=== PATIENT | female | born 1960 | race Caucasian/White ===

== ENCOUNTER 2016-04-05 17:47 | Emergency (ER) | payer OTHER ==
[~2016-04-05] VITALS: Ht 162.6 cm; Wt 88.9 kg
--- NOTE | 2016-04-05 19:40 | ED GENERAL ADULT ---
History of Present Illness General Chief Complaint: Chest Pain Stated Complaint: FEVER,CHEST PAIN,COUGH Source: patient Exam Limitations: no limitations Vital Signs & Intake/Output Vital Signs & Intake/Output Vital Signs Date Time Temp Pulse Resp B/P Pulse O2 O2 Flow FiO2 Ox Delivery Rate 04/05 2039 100.5 78 18 148/65 96 Room Air 04/05 1949 Room Air 04/050 102.5 04/05 1817 102.5 80 20 133/71 98 Room Air Allergies Coded Allergies: diphenhydramine (From BENADRYL) (Intermediate, "MAKES ME CRAZY" 04/05/16) rofecoxib (From VIOXX) (Intermediate, ARRHYTHMIAS 04/05/16) adhesive tape (Mild, REDNESS AND SWELLING AT SITE 04/05/16) morphine (Mild, "MAKES ME ITCH" 04/05/16) Reconcile Medications Oseltamivir Phosphate (Tamiflu) 75 MG CAPSULE 1 CAP PO BID influenza Robitussin AC (Guaifenesin-Codeine Syrup) 200 MG-20 MG/10 ML LIQUID 10 ML PO Q6H PRN COUGH Triage Note: TRIAGE: PT TO ER C/C FEVER, CHEST PAIN, COUGH, HEADACHE, L NECK PAIN, LOW ABD PAIN. ONSET THURSDAY. COUGH HAS BEEN NONPRODUCTIVE. STATES STARTED OUT OF NO WHERE. FEELS THE ABD PAIN IS R/T PULLED MUSCLES FROM COUGHING. HAS BEEN STRESSED R/T RECENT ILLNESS AND OF HER MOTHER ON THURSDAY WITH TODAY. STATES THAT SHE WAS ALSO EXPOSED TO MRSA WITH HER MOTHERS ILLNESS. HAD ECHO, STRESS TEST AND CALCIUM LEVEL CHECK DONE AT [facility] ON THURSDAY FOR "INTERMITTENT EXCRUCIATING CHEST PAINS". TRIED TO BE SEEN AT [facility] TODAY BUT NEITHER PLACE WOULD TAKE HER THEY WERE CLOSING WITHIN THE HOUR. HAD EKG DONE IN [place] PRIOR TO TRIAGE. TEMP 102.5 AT TRIAGE, LAST DOSE OF ANTIPYRETICS 09:30. Triage Nurses Notes Reviewed? yes HPI: Patient is a 55-year-old female presents complaining of cough and fevers. Symptoms for approximately 2 days. Fever between 102 and 103F. Patient has been taking ibuprofen with mild improvement. Patient reports lower abdominal pain secondary to the cough. Patient also reports intermittent chest pain associated with her cough. Patient had an echocardiogram and a stress test yesterday. Cough has been severe. Past History Travel History Traveled to [place] past 21 day No Medical History Any Pertinent Medical History? 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 No Review of Systems Review of Systems Constitutional: Reports: chills, fever, malaise, weakness. EENTM: Reports: nasal congestion. Respiratory: Reports: see HPI, cough, sputum production. Cardiovascular: Reports: chest pain. GI: Reports: abdominal pain. Denies: diarrhea, vomiting. Genitourinary: Reports: no symptoms. Musculoskeletal: Reports: muscle pain. Skin: Reports: no symptoms. Neurological/Psychological: Reports: no symptoms. Hematologic/Endocrine: Reports: no symptoms. Immunologic/Allergic: Reports: no symptoms. Physical Exam Physical Exam General Appearance: well developed/nourished, alert, awake Head: atraumatic, normal appearance Eyes: Bilateral: normal appearance, PERRL, EOMI. Ears, Nose, Throat: normal pharynx, normal ENT inspection, hearing grossly normal Neck: normal inspection, supple, full range of motion Respiratory: normal breath sounds, chest non-tender, no respiratory distress, lungs clear Cardiovascular: regular rate/rhythm Back: normal inspection, normal range of motion Extremities: normal inspection, normal capillary refill, normal range of motion, no edema Neurologic/Psych: no motor/sensory deficits, awake, alert, oriented x 3, normal gait, normal mood/affect Skin: intact, normal color, warm/dry Lymphatic: no anterior cervical snehal Core Measures ACS in differential dx? Yes ASA ordered for poss ACS? No-ACS ruled out CVA/TIA Diagnosis: No Severe Sepsis Present: No Septic Shock Present: No Progress Differential Diagnoses I considered the following diagnoses in my evaluation of the patient: influenza, pneumonia, sepsis, acs Plan of Care: Orders Procedure Date/time Status URINALYSIS 04/05 1901 Complete RAPID VIRAL INFLUENZA A 04/05 1838 Complete EKG 04/05 1748 Active Laboratory Tests 04/05/161899: Urine Color YEL, Urine Clarity CLEAR, Urine pH 6.5, Ur Specific [place] 1.010, Urine Protein NEG, Urine Ketones NEG, Urine Nitrite NEG, Urine Bilirubin NEG, Urine Urobilinogen 0.2, Ur Leukocyte Esterase NEG, Ur Microscopic EXAM NOT REQUIRED, Urine Hemoglobin NEG, Urine Glucose NEG 04/05/161838: Sodium Cancelled, Potassium Cancelled, Chloride Cancelled, Carbon Dioxide Cancelled, Anion Gap Cancelled, BUN Cancelled, Creatinine Cancelled, BUN/ Creatinine Ratio Cancelled, Glucose Cancelled, Calcium Cancelled, Total Bilirubin Cancelled, AST Cancelled, ALT Cancelled, Alkaline Phosphatase Cancelled, Total Protein Cancelled, Albumin Cancelled, Globulin Cancelled, Albumin/Globulin Ratio Cancelled, CBC w Diff Cancelled, WBC Cancelled, RBC Cancelled, Hgb Cancelled, Hct Cancelled, MCV Cancelled, MCH Cancelled, RDW Cancelled, Plt Count Cancelled, MPV Cancelled, PUBS MCHC Cancelled Microbiology 04/05 184 NASOPHARYN: Influenza Virus A & B Rapid Smear - COMP INFLUENZA TYPE A 04/05 1838 BLOOD: Blood Culture - CAN Cancelled: Cancelled via OE: Per MD Decision Positive influenza swab. Blood work and imaging deferred. Patient had stress test and echo yesterday. Chest pain appears to be secondary to cough. (JUANITA MENDOSA,HAYDER) Initial ED EKG: normal sinus rhythm, no ST T wave changes Departure Departure Time of Disposition: 1952 Disposition: HOME OR SELF CARE Condition: Stable Clinical Impression Primary Impression: Influenza A Referrals: ROSALINA PÉREZ,CRISTINA BATES (PCP/Family) Additional Instructions: Drink plenty of fluids and rest. Alternate Tylenol and ibuprofen for pain and fevers. Return to the ER if unable to stay hydrated or worsening of symptoms. Departure Forms: Customer Survey General Discharge Information Prescriptions: Current Visit Scripts Oseltamivir Phosphate (Tamiflu) 1 CAP PO BID #10 CAP Robitussin AC (Guaifenesin-Codeine Syrup) 10 ML PO Q6H PRN COUGH #150 ML Critical Care Note Critical Care Note Critical Care Time: non-applicable
[2016-04-05] MEDS ORDERED: TAMIFLU75 M1 PO (19:57)
[2016-04-05] MEDS ORDERED: GUAIFENESIN-COD10 ML PO (19:57)
[2016-04-05 20:40] VITALS: BP 148/65
== END 2016-04-05 20:43 ==
LOC: ERH 17:47
DX: R07.9 Chest pain, unspecified (principal); J10.1 Influenza due to other identified influenza virus with other respiratory manifestations
CPT/HCPCS: 81003; 87040; 87804; 87804-59; 93005; 93010